=== PATIENT | male | born 1950 | race Caucasian/White ===

== ENCOUNTER → 2017-11-06 | Outpatient (CLI) | payer MEDICARE ==
[~2017-11-06] MED LIST: Cheratussin AC118 ML PO; Cipro500 MG PO; HYDACE5 PO; HYDACE5325 PO; HYDMOR2 PO; LEVFLO500 PO; Mobic7.5 MG PO; ONDA4 PO; OXYACE5T PO; POTCIT5 PO; PROM25 PO; Percocet 5-3251 EACH PO; RXHYDMOR2 PO; RXONDA4ODT MM; RXOXYACE PO
== END | disposition home or self-care (01) ==
LOC: LAB SHORT 09:14 → LAB 09:14
DX: N39.0 Urinary tract infection, site not specified (principal)
CPT/HCPCS: 87086

== ENCOUNTER 2017-12-21 01:49 | Emergency (ER) | payer MEDICARE ==
[~2017-12-21] VITALS: Ht 182.9 cm; Wt 83.9 kg
[2017-12-21 03:12] LABS: BASOPHILS ABSOLUTE AUTO 0.03 K/mm3 (0.00-0.23); BASOPHILS PERCENT AUTO 0 % (0-2); EOSINOPHILS ABSOLUTE AUTO 0.11 K/mm3 (0.00-0.68); EOSINOPHILS PERCENT AUTO 1 % (0-6); Hematocrit 45.8 % (37.0-53.0); Hemoglobin 15.1 g/dL (13.5-17.5); IMMATURE GRAN ABSOLUTE AUTO 0.07 K/mm3 (0.00-0.10); IMMATURE GRAN PERCENT AUTO 1 % (0-1); LYMPHOCYTES ABSOLUTE AUTO 0.82 K/mm3 (0.84-5.20); LYMPHOCYTES PERCENT AUTO 9 % (21-46); MONOCYTES ABSOLUTE AUTO 1.16 K/mm3 (0.16-1.47); MONOCYTES PERCENT AUTO 13 % (4-13); Mean Corpuscular HGB 26.8 pg (26.0-34.0); Mean Corpuscular Volume 81 fL (80-100); Mean Platelet Volume 10.3 fL (9.1-12.4); NEUTROPHILS ABSOLUTE AUTO 7.12 K/mm3 (1.96-9.15); NEUTROPHILS PERCENT AUTO 76 % (41-73); Platelet Count 147 K/mm3 (150-400); RDW Coefficient Variation 16.3 % (11.7-14.2); RDW Standard Deviation 48.1 fL (35.1-46.3); Red Blood Cell Count 5.64 M/mm3 (4.30-5.90); White Blood Cell Count 9.31 K/mm3 (4.00-11.30)
[2017-12-21 03:30] LABS: Albumin, Blood 4.3 g/dL (3.4-5.0); Albumin/Globulin Ratio 1.4 (0.8-1.8); Bilirubin, Total 0.8 mg/dL (0.1-1.0); Bun/Creatinine Ratio 10.9 (12.0-20.0); Calcium, Blood 9.3 mg/dL (8.5-10.1); Creatinine, Blood 1.47 mg/dL (0.60-1.20); Total Protein, Blood 7.3 g/dL (6.4-8.2)
[2017-12-21] MEDS ORDERED: Norco 5-325 Ta1 EACH PO (06:27)
[2017-12-21] MEDS ORDERED: Zofran Odt4 MG PO (06:27)
[2017-12-21] MEDS ORDERED: Flomax0.4 MG PO (06:27)
== END 2017-12-21 06:35 | disposition home or self-care (01) ==
LOC: ER 01:49
PROVIDERS: Emergency Medicine
DX: N13.2 Hydronephrosis with renal and ureteral calculous obstruction (principal); Z91.013 Allergy to seafood; Z87.891 Personal history of nicotine dependence; Z87.442 Personal history of urinary calculi
CPT/HCPCS: 36415; 74176; 80053; 81000; 83690; 85025; 96374; 96375; 99285; J1885; J3010; J7030

== ENCOUNTER → 2018-05-13 | Outpatient (CLI) | payer MEDICARE ==
[~2018-05-13] MED LIST changes: +Flomax0.4 MG PO; +Norco 5-325 Ta1 EACH PO; +Zofran Odt4 MG PO
[2018-05-13 10:46] LABS: BASOPHILS ABSOLUTE AUTO 0.01 K/mm3 (0.00-0.23); BASOPHILS PERCENT AUTO 0 % (0-2); EOSINOPHILS ABSOLUTE AUTO 0.18 K/mm3 (0.00-0.68); EOSINOPHILS PERCENT AUTO 3 % (0-6); IMMATURE GRAN ABSOLUTE AUTO 0.15 K/mm3 (0.00-0.10); IMMATURE GRAN PERCENT AUTO 2 % (0-1); LYMPHOCYTES ABSOLUTE AUTO 0.45 K/mm3 (0.84-5.20); LYMPHOCYTES PERCENT AUTO 7 % (21-46); MONOCYTES ABSOLUTE AUTO 1.06 K/mm3 (0.16-1.47); MONOCYTES PERCENT AUTO 16 % (4-13); Mean Corpuscular HGB 26.1 pg (26.0-34.0); Mean Corpuscular HGB Conc 30.1 g/dL (31.5-36.5); Mean Corpuscular Volume 87 fL (80-100); Mean Platelet Volume 12.1 fL (9.1-12.4); NEUTROPHILS PERCENT AUTO 73 % (41-73); NRBC ABSOLUTE 0.03 K/mm3 (0.00-0.02); NRBC Auto 0.4 /100 WBC (0.0-0.2); Platelet Count 83 K/mm3 (150-400); RDW Coefficient Variation 20.7 % (11.7-14.2); RDW Standard Deviation 64.5 fL (35.1-46.3); Red Blood Cell Count 1.99 M/mm3 (4.30-5.90); White Blood Cell Count 6.85 K/mm3 (4.00-11.30)
[2018-05-13 10:47] LABS: Alanine Aminotransfer (ALT/SGP 21 U/L (12-78); Albumin, Blood 2.8 g/dL (3.4-5.0); Albumin/Globulin Ratio 0.9 (0.8-1.8); Alk Phos 190 U/L (50-136); Anion Gap 14 mmol/L (6-16); Aspartate Aminotrans (AST/SGOT 7 U/L (12-37); Bilirubin, Total 1.3 mg/dL (0.1-1.0); Blood Urea Nitrogen 25 mg/dL (8-24); Bun/Creatinine Ratio 21.6 (12.0-20.0); CO2, Blood 20 mmol/L (21-32); Calcium, Blood 7.8 mg/dL (8.5-10.1); Chloride, Blood 108 mmol/L (98-108); Creatinine, Blood 1.16 mg/dL (0.60-1.20); Glomerular Filtration Rate >60 (60-); Glucose, Blood 103 mg/dL (70-99); Potassium, Blood 3.9 mmol/L (3.5-5.5); Sodium, Blood 142 mmol/L (136-145); Total Protein, Blood 5.8 g/dL (6.4-8.2)
[2018-05-13 10:58] LABS: Hematocrit 17.3 % (37.0-53.0)
[2018-05-13 10:59] LABS: Hemoglobin 5.2 g/dL (13.5-17.5)
== END | disposition home or self-care (01) ==
LOC: LAB SHORT 10:00 → LAB 10:00
PROVIDERS: Internal Medicine Hematology & Oncology
DX: C91.10 Chronic lymphocytic leukemia of B-cell type not having achieved remission (principal); D69.6 Thrombocytopenia, unspecified; D63.0 Anemia in neoplastic disease
CPT/HCPCS: 36415; 80053; 84550; 85025

== ENCOUNTER 2018-07-13 02:17 | Emergency (ER) | payer MEDICARE ==
[~2018-07-13] VITALS: Ht 182.9 cm; Wt 74.8 kg
[~2018-07-13 02:17] MED LIST changes: +ASCO500 PO; +VITAMIN D35000 UNI1 PO
[2018-07-13] MEDS ORDERED: CYAN500 (03:07)
[2018-07-13] MEDS ORDERED: CITRATE OF MAG296 ML PO (04:32)
== END 2018-07-13 04:42 | disposition home or self-care (01) ==
LOC: ER 02:17
DX: K59.00 Constipation, unspecified (principal); Z91.013 Allergy to seafood; Z79.899 Other long term (current) drug therapy; Z87.891 Personal history of nicotine dependence
CPT/HCPCS: 74018; 99283-25

== ENCOUNTER 2018-09-25 16:52 | Emergency (ER) | payer MEDICARE ==
[~2018-09-25] VITALS: Ht 177.8 cm; Wt 77.1 kg
[~2018-09-25 16:52] MED LIST changes: +CITRATE OF MAG296 ML PO; +CYAN500
[2018-09-25 18:59] LABS: BASOPHILS PERCENT AUTO 0 % (0-2); EOSINOPHILS ABSOLUTE AUTO 0.03 K/mm3 (0.00-0.68); EOSINOPHILS PERCENT AUTO 1 % (0-6); Hematocrit 26.7 % (37.0-53.0); Hemoglobin 8.5 g/dL (13.5-17.5); Mean Corpuscular HGB 31.4 pg (26.0-34.0); Mean Corpuscular HGB Conc 31.8 g/dL (31.5-36.5); Mean Corpuscular Volume 99 fL (80-100); Mean Platelet Volume 12.1 fL (9.1-12.4); RDW Coefficient Variation 17.5 % (11.7-14.2); RDW Standard Deviation 63.2 fL (35.1-46.3); Red Blood Cell Count 2.71 M/mm3 (4.30-5.90); White Blood Cell Count 4.49 K/mm3 (4.00-11.30)
[2018-09-25 19:41] LABS: IMMATURE GRAN PERCENT AUTO 2 % (0-1); LYMPHOCYTES PERCENT AUTO 5 % (21-46); MONOCYTES ABSOLUTE AUTO 0.66 K/mm3 (0.16-1.47); MONOCYTES PERCENT AUTO 15 % (4-13); NEUTROPHILS PERCENT AUTO 78 % (41-73)
[2018-09-25 19:43] LABS: Platelet Count 47 K/mm3 (150-400)
[2018-09-25 19:46] LABS: Alanine Aminotransfer (ALT/SGP 27 U/L (12-78); Albumin/Globulin Ratio 1.1 (0.8-1.8); Alk Phos 381 U/L (50-136); Anion Gap 6 mmol/L (6-16); Aspartate Aminotrans (AST/SGOT 12 U/L (12-37); Bilirubin, Total 1.6 mg/dL (0.1-1.0); Blood Urea Nitrogen 22 mg/dL (8-24); Bun/Creatinine Ratio 23.7 (12.0-20.0); CO2, Blood 28 mmol/L (21-32); Calcium, Blood 8.6 mg/dL (8.5-10.1); Chloride, Blood 103 mmol/L (98-108); Creatinine, Blood 0.93 mg/dL (0.60-1.20); Globulin, Blood 2.8 g/dL (2.2-4.0); Glomerular Filtration Rate >60 (60-); Glucose, Blood 112 mg/dL (70-99); Potassium, Blood 3.4 mmol/L (3.5-5.5); Sodium, Blood 137 mmol/L (136-145); Total Protein, Blood 5.8 g/dL (6.4-8.2)
[2018-09-25 19:51] LABS: Source, Urine Clean Catch
[2018-09-25 20:00] LABS: Blood, Urine Neg (Neg); Glucose Qualitative, Urine Neg (Neg); Ketones, Urine Neg (Neg); Leukocyte Esterase, Urine 1+ (Neg); Nitrite, Urine Neg (Neg); Protein, Urine 1+ (Neg); Specific Gravity, Urine 1.015 (1.003-1.022); Urobilinogen, Urine 2+ (Normal)
[2018-09-25 20:06] LABS: Influenza A Negative (NEGATIVE); Influenza B Negative (NEGATIVE)
[2018-09-25 20:15] LABS: Bilirubin, Urine 1+ (Neg)
[2018-09-25 20:16] LABS: Appearance, Urine Clear (Clear); Color, Urine Amber (P-Yellow)
[2018-09-25 20:18] LABS: Bacteria Rare /hpf; Red Blood Cells, Urine Not Seen /hpf (0-2); Squamous Epithelial Cells Not Seen /hpf (Few)
[2018-09-25] MEDS ORDERED: LEVO750 PO (22:13)
== END 2018-09-25 22:20 | disposition home or self-care (01) ==
LOC: ER 16:52
PROVIDERS: Emergency Medicine
DX: I95.9 Hypotension, unspecified (principal); J18.9 Pneumonia, unspecified organism; E86.0 Dehydration; D64.9 Anemia, unspecified; Z91.013 Allergy to seafood; Z79.899 Other long term (current) drug therapy
CPT/HCPCS: 36415; 71046; 71260; 74177; 80053; 81001; 83605; 85025; 87086; 87804; 93005; 93010; 96360-59; 96361-59; 99284-25; J7030; J7120; Q9967

== ENCOUNTER 2018-09-27 16:33 | Inpatient (IN) | payer MEDICARE ==
[~2018-09-27] VITALS: Ht 182.9 cm; Wt 80.4 kg
[~2018-09-27 16:33] MED LIST changes: +LEVO750 PO
[2018-09-27 17:04] LABS: Hematocrit 22.9 % (37.0-53.0); Hemoglobin 7.3 g/dL (13.5-17.5); Mean Corpuscular HGB 31.7 pg (26.0-34.0); Mean Corpuscular HGB Conc 31.9 g/dL (31.5-36.5); Mean Corpuscular Volume 100 fL (80-100); Mean Platelet Volume 12.5 fL (9.1-12.4); RDW Coefficient Variation 17.2 % (11.7-14.2); RDW Standard Deviation 63.9 fL (35.1-46.3); White Blood Cell Count 4.02 K/mm3 (4.00-11.30)
[2018-09-27 17:33] LABS: Albumin, Blood 2.6 g/dL (3.4-5.0); Bilirubin, Total 1.3 mg/dL (0.1-1.0); Bun/Creatinine Ratio 20.2 (12.0-20.0); Calcium, Blood 8.6 mg/dL (8.5-10.1); Creatinine, Blood 1.29 mg/dL (0.60-1.20); Globulin, Blood 2.7 g/dL (2.2-4.0); Potassium, Blood 3.7 mmol/L (3.5-5.5); Total Protein, Blood 5.3 g/dL (6.4-8.2)
[2018-09-27 17:37] LABS: Platelet Count 30 K/mm3 (150-400)
[2018-09-27 17:44] LABS: BAND PERCENT MAN 4 % (0-8); BASOPHILS PERCENT MAN 0 % (0-2); EOSINOPHILS PERCENT MAN 0 % (0-6); LYMPHOCYTES ABSOLUTE MAN 0.32 K/mm3 (0.84-5.20); LYMPHOCYTES PERCENT MAN 8 % (21-46); MONOCYTES PERCENT MAN 10 % (4-13); NEUTROPHILS ABSOLUTE MAN 3.29 K/mm3 (1.96-9.15); SEG NEUTROPHILS PERCENT MAN 78 % (41-73); TOTAL CELLS COUNTED 100
[2018-09-27 19:40] LABS: Appearance, Urine Clear (Clear); Blood, Urine Neg (Neg); Color, Urine Amber (P-Yellow); Glucose Qualitative, Urine Neg (Neg); Ketones, Urine 1+ (Neg); Leukocyte Esterase, Urine 1+ (Neg); Nitrite, Urine Pos (Neg); Protein, Urine 2+ (Neg); Source, Urine Clean Catch; Specific Gravity, Urine 1.015 (1.003-1.022); Urobilinogen, Urine 2+ (Normal)
[2018-09-27 19:44] LABS: Bilirubin, Urine 2+ (Neg)
[2018-09-27 19:47] LABS: Bacteria Mod /hpf; Hyaline Casts 50-100 /lpf (0-2); Red Blood Cells, Urine 0-2 /hpf (0-2); Squamous Epithelial Cells Not Seen /hpf (Few)
--- NOTE | 2018-09-27 23:20 | NUR ---
PT ARRIVAL. PT ARRIVED TO UNIT VIA [facility] AT 2305, PT IS A&Ox4 AND WAS ABLE TO SELF TRANSFER FROM [facility] TO BED. PT WAS ADMITTED DUE TO PNA AND WEAKNESS, PT WAS FOUND TO BE HYPOTENSIVE IN THE ER, 2L FLUID BOLUS WAS GIVEN IN THE ER. PT WAS ALSO FOUND TO HAVE A LOW H&H, PROVIDER ORDERED 1 UNIT OF PRBCS. PT'S BP ON ADMIT WAS 83/47, PT'S HR WAS 97, TEMP 99.0. PT DENIES ANY SOB, CHEST PAIN/PRESSURE, N/V OR DIZZINESS AT THIS TIME. NO EDEMA NOTED ON ASSESSMENT. L/S CLEAR T/O WITH SLIGHT COARSENESS IN THE BASES. PT IS 95% ON RA. BT PRESENT AND HYPOACTIVE, ABD IS SOFT AND NONTENDER TO PALP. PT STATES THAT HE HAS NOT EATEN WELL IN "WEEKS" DUE TO CHEMO TREATMENTS THAT ENDED APROX 2 WEEKS AGO, PT ALSO STATES THAT HE HAS NOT HAD A BM IN "A WEEK AND A HALF OR SO." PT COMPLAINS OF HIS "BACKSIDE" HURTING DUE TO "BEING IN BED ALL THE TIME RECENTLY." AREA WAS ASSESSED, NO PRESSURE ULCER OR SKIN ISSUES NOTED, MEPILEX WAS PLACED TO THE SACRAL AREA TO HELP PREVENT FUTURE SKIN ISSUES. CALL LIGHT IN REACH, BED IS LOCKED AND LOW WILL CONTINUE TO MONITOR.
[2018-09-27 23:41] LABS: IMMATURE RETIC FRACTION 2.2 % (2.3-16.0); RETIC HGB EQUIVALENT 33.8 pg (28.20-36.60); RETICULOCYTE COUNT PERCENT 0.96 % (0.50-2.50)
[2018-09-28 00:30] LABS: Percent Saturation 39.6 % (20.0-50.0)
--- NOTE | 2018-09-28 03:20 | NUR ---
PT UPDATE... 1 UNIT OF BLOOD WAS TRANSFUSED PER ORDERS, PT'S BP AFTER TRANSFUSION WAS:79/43. PROVIDER WAS CALLED AND ORDERS OBTAINED FOR 1L BOLUS OF NS AND A 2ND UNIT OF PRBCS.
[2018-09-28 03:57] LABS: BASOPHILS PERCENT AUTO 0 % (0-2); EOSINOPHILS ABSOLUTE AUTO 0.01 K/mm3 (0.00-0.68); EOSINOPHILS PERCENT AUTO 1 % (0-6); Hematocrit 21.3 % (37.0-53.0); Hemoglobin 6.9 g/dL (13.5-17.5); Mean Corpuscular HGB 31.7 pg (26.0-34.0); Mean Corpuscular HGB Conc 32.4 g/dL (31.5-36.5); Mean Corpuscular Volume 98 fL (80-100); Mean Platelet Volume 11.7 fL (9.1-12.4); RDW Coefficient Variation 17.6 % (11.7-14.2); RDW Standard Deviation 63.1 fL (35.1-46.3); Red Blood Cell Count 2.18 M/mm3 (4.30-5.90); White Blood Cell Count 2.16 K/mm3 (4.00-11.30)
[2018-09-28 03:59] LABS: IMMATURE GRAN ABSOLUTE AUTO 0.05 K/mm3 (0.00-0.10); IMMATURE GRAN PERCENT AUTO 2 % (0-1); LYMPHOCYTES ABSOLUTE AUTO 0.08 K/mm3 (0.84-5.20); LYMPHOCYTES PERCENT AUTO 4 % (21-46); MONOCYTES PERCENT AUTO 14 % (4-13); NEUTROPHILS ABSOLUTE AUTO 1.72 K/mm3 (1.96-9.15); NEUTROPHILS PERCENT AUTO 80 % (41-73)
[2018-09-28 04:00] LABS: Platelet Count 22 K/mm3 (150-400)
[2018-09-28 04:17] LABS: Alanine Aminotransfer (ALT/SGP 18 U/L (12-78); Albumin, Blood 2.2 g/dL (3.4-5.0); Alk Phos 292 U/L (50-136); Anion Gap 9 mmol/L (6-16); Aspartate Aminotrans (AST/SGOT 10 U/L (12-37); Bilirubin, Total 1.9 mg/dL (0.1-1.0); Blood Urea Nitrogen 25 mg/dL (8-24); Bun/Creatinine Ratio 21.7 (12.0-20.0); CO2, Blood 23 mmol/L (21-32); Calcium, Blood 7.8 mg/dL (8.5-10.1); Chloride, Blood 106 mmol/L (98-108); Creatinine, Blood 1.15 mg/dL (0.60-1.20); Globulin, Blood 2.1 g/dL (2.2-4.0); Glomerular Filtration Rate >60 (60-); Glucose, Blood 116 mg/dL (70-99); Potassium, Blood 3.6 mmol/L (3.5-5.5); Sodium, Blood 138 mmol/L (136-145); Total Protein, Blood 4.3 g/dL (6.4-8.2)
--- NOTE | 2018-09-28 05:35 | NUR ---
SHIFT SUMMARY. 2ND UNIT OF PRBCS IS TRANSFUSING, 1L FLUID BOLUS WAS INFUSED, PT'S BP AT THIS TIME IS: 81/45 (MAP: 57), HR 73. PT DENIES ANY SOB, CHEST PAIN/PRESSURE, N/V OR DIZZINESS. PT STATES HE FEELS BEETER AFTER THE FLUIDS AND UNIT OF BLOOD. PT'S COLOR HAS IMPROVED WELL. PT IS VOIDING DARK SHELIA URINE W/O DIFFICULTY USING THE URINAL AT THE BEDSIDE. CALL LIGHT IN REACH, BED IS LOCKED AND LOW WILL CONTINUE TO MONITOR UNTIL REPORT IS GIVEN TO ONCOMING RN.
--- NOTE | 2018-09-28 07:43 | NUR ---
NURSING PCU DAYSHIFT: Assumed care of pt at approx 0700. A/O, very pleasant, cooperative w/care. [place]OT[place]K on R side. Denies any pain/discomfort at rest. No c/o dizziness/light headedness though mild general weakness is present. Skin is dry/fragile w/scattered bruising on UE's, no breakdown noted. Tele in place, NSR, no c/o CP/pressure, SBP low 90's this a.m., no noted edema. L/S cta t/o, O2 sat mid 90's on RA, denies dyspnea, occ dry/DEVELOPMENT SPECIALIST cough. Abd SNT, BT+, minimal appetite, voiding w/o difficulty per pt. PIV x2, PRBC's infusing as per d/o, NS infusing at 150cc/hr, abx as ordered. No s/s of acute distress at this time. Dietary consult placed to discuss nutritional supplements w/pt. Pt denies any current needs or questions regarding plan of care. Currently sitting up in bed taking w/family on phone. Call light in reach, awaiting rounding from PMD, cont to monitor for any changes.
--- NOTE | 2018-09-28 16:16 | NUR ---
NURSING PCU DAYSHIFT SUMMARY: No significant changes noted t/o the shift. Seen by PMD, new d/o received. IVF discontinued, new d/o for meds received. Carafate and mycelex administered as ordered d/t pt's c/o worsening heartburn and reflux. Educated on positioning and recommended diet choices to reduce risk of reflux, verbalized understanding. VS have remained stable. Worked w/P.T., able to ambulate w/no c/o dizziness/light headedness, maintained SBP >100, steady gait. Spouse at bedside in afternoon, update provided, plan of care discussed, pt and s/o denied questions at that time. No s/s of acute distress, call light in reach, cont to monitor until rpt is given to NOC RN.
--- NOTE | 2018-09-28 20:13 | NUR ---
PM NOTE. ASSUMED CARE OF PT APROX 1900, PT IS A&Ox4 AND IND IN THE ROOM, PT IS ABLE TO MOVE FROM BED TO RECLINER CHAIR WITH EASE. PT'S WEAKNESS HAS IMPROVED GREATLY FROM PREVIOUS SHFIT. TELE INTACT, NSR IN THE 90'S-100'S PER [employer] OPERATIONS SUPERINTENDENT, PT'S BP 85/42, PT IS NOT SYMPTOMATIC OF HYPOTENSION AT THIS TIME. PT'S L/S CLEAR T/O AND SLIGHTLY COARSE IN THE BASES, PT IS 98% ON RA. BT PRESENT AND HYPOACTIVE, ABD IS SOFT AND NONTENDER TO PALP. CALL LIGHT IN REACH, BED IS LOCKED AND LOW WILL CONTINUE TO MONITOR.
[2018-09-28 20:46] LABS: Vancomycin, Trough 9.6 ug/mL (5.0-10.0)
[2018-09-29 03:49] LABS: BASOPHILS PERCENT AUTO 0 % (0-2); EOSINOPHILS ABSOLUTE AUTO 0.03 K/mm3 (0.00-0.68); EOSINOPHILS PERCENT AUTO 1 % (0-6); Hematocrit 23.3 % (37.0-53.0); Hemoglobin 7.6 g/dL (13.5-17.5); Mean Corpuscular HGB 31.4 pg (26.0-34.0); Mean Corpuscular HGB Conc 32.6 g/dL (31.5-36.5); Mean Corpuscular Volume 96 fL (80-100); Mean Platelet Volume 11.7 fL (9.1-12.4); RDW Coefficient Variation 17.6 % (11.7-14.2); RDW Standard Deviation 62.4 fL (35.1-46.3); Red Blood Cell Count 2.42 M/mm3 (4.30-5.90); White Blood Cell Count 2.31 K/mm3 (4.00-11.30)
[2018-09-29 03:51] LABS: IMMATURE GRAN ABSOLUTE AUTO 0.04 K/mm3 (0.00-0.10); IMMATURE GRAN PERCENT AUTO 2 % (0-1); LYMPHOCYTES ABSOLUTE AUTO 0.05 K/mm3 (0.84-5.20); LYMPHOCYTES PERCENT AUTO 2 % (21-46); MONOCYTES PERCENT AUTO 13 % (4-13); NEUTROPHILS ABSOLUTE AUTO 1.89 K/mm3 (1.96-9.15); NEUTROPHILS PERCENT AUTO 82 % (41-73); Platelet Count 20 K/mm3 (150-400)
[2018-09-29 04:05] LABS: Alanine Aminotransfer (ALT/SGP 14 U/L (12-78); Albumin, Blood 2.1 g/dL (3.4-5.0); Alk Phos 223 U/L (50-136); Anion Gap 8 mmol/L (6-16); Aspartate Aminotrans (AST/SGOT 6 U/L (12-37); Bilirubin, Total 2.1 mg/dL (0.1-1.0); Blood Urea Nitrogen 23 mg/dL (8-24); Bun/Creatinine Ratio 23.9 (12.0-20.0); CO2, Blood 22 mmol/L (21-32); Calcium, Blood 7.4 mg/dL (8.5-10.1); Chloride, Blood 111 mmol/L (98-108); Creatinine, Blood 0.96 mg/dL (0.60-1.20); Globulin, Blood 2.1 g/dL (2.2-4.0); Glomerular Filtration Rate >60 (60-); Glucose, Blood 108 mg/dL (70-99); Magnesium, Blood 1.7 mg/dL (1.6-2.4); Potassium, Blood 3.4 mmol/L (3.5-5.5); Sodium, Blood 141 mmol/L (136-145); Total Protein, Blood 4.2 g/dL (6.4-8.2)
[2018-09-29 04:18] LABS: BAND PERCENT MAN 10 % (0-8); BASOPHILS PERCENT MAN 0 % (0-2); EOSINOPHILS ABSOLUTE MAN 0.06 K/mm3 (0.00-0.68); EOSINOPHILS PERCENT MAN 3 % (0-6); LYMPHOCYTES ABSOLUTE MAN 0.09 K/mm3 (0.84-5.20); LYMPHOCYTES PERCENT MAN 4 % (21-46); MONOCYTES ABSOLUTE MAN 0.13 K/mm3 (0.16-1.47); MONOCYTES PERCENT MAN 6 % (4-13); MYELOCYTE ABSOLUTE MAN 0.02 K/mm3 (0.00-0.00); MYELOCYTE PERCENT MAN 1 % (0-0); NEUTROPHILS ABSOLUTE MAN 1.98 K/mm3 (1.96-9.15); SEG NEUTROPHILS PERCENT MAN 76 % (41-73); TOTAL CELLS COUNTED 100
--- NOTE | 2018-09-29 05:32 | NUR ---
SHIFT SUMMARY. NO ACUTE CHANGES NOTED THIS SHIFT. PT'S BP HAS BEEN 80'S/40'S MOST WITH MAP LESS THAN 60 MOST OF THIS SHIFT. PT HAS NOT BEEN SYMPTOMATIC AND STATES "I ACTUALLY FEEL BETTER THAN I HAVE IN A WHILE." PROVIDER WAS MADE AWARE OF PT'S BP AND MAP, NO NEW ORDERS WERE GIVEN. PT DENIES ANY CHEST PAIN/PRESSURE, N/V OR SOB, PT'S WEAKNESS HAS IMPROVED AND HE HAS BEEN IND IN THE ROOM. PT DENIES ANY LIGHTHEADED OR DIZZINESS WELL. PT'S OTHER VS HAVE BEEN STABLE T/O SHIFT. CALL LIGHT IN REACH, BED IS LOCKED AND LOW WILL CONTINUE TO MONITOR UNTIL REPORT IS GIVEN TO ONCOMING RN.
--- NOTE | 2018-09-29 07:30 | NUR ---
RECEIVED REPORT FROM BRANDI ARREOLA, AND ASSUMED CARE OF PT.
--- NOTE | 2018-09-29 09:05 | NUR ---
CALLED DR. GARCIA RE: K = 3.4, HBG = 7.6, AND PLT = 20. SHE STATED SHE WILL ENTER ORDERS.
--- NOTE | 2018-09-29 16:59 | NUR ---
NURSING SUMMARY SLEEPY TODAY, WAKES EASILY TO VOICE, ORIENTED X4, [place], MILDLY ANXIOUS AT TIMES. NSR HR 70'S. BP STABLE. AFEBRILE. LUNGS CLEAR, ROOM AIR, SATS GREATER THAN 95%. VOIDS PER URINAL, SHELIA URINE, ADEQUATE OUTPUT. INDEPENDENT IN THE ROOM, HAD A SHOWER TODAY. CALLS FOR ASSISTANCE APPROPRIATELY. TOLERATING A REGULAR DIET. SKIN INTACT. DENIES PAIN. BOWEL SOUNDS PRESENT X 4 QUADRANTS, DENIES N/V/D. CARAFTE FOR REFLUX. LEFT HAND 22G AND RFA 20G, INFUSING D5 1/2 NS WITH 40 MEQS POTASSIUM AT 150 CC/HR. K3.4. H&H 7.6/23.3, PLATELETS 20.
--- NOTE | 2018-09-29 18:47 | NUR ---
LEFT HAND/FOREARM IV INFILTRATED, SWOLLEN, LEAKING, C/O MILD PAIN. REMOVED IV AND APPLIED WARM BLANKET. PT DENIES NEED FOR PAIN MEDICATION. D5 1/2 NS WITH 40 MEQS POTASSIUM INFUSING AT 150 ML/HR TO THE RIGHT ARM IV SITE.
[2018-09-29 20:32] LABS: Vancomycin, Trough 13.8 ug/mL (5.0-10.0)
--- NOTE | 2018-09-29 22:41 | NUR ---
ASSUME CARE - PCU NOC PATIENT ALERT AND ORIENTED TO SELF, LOCATION AND SITUATION - PATIENT VERBALIZES CONFUSION BUT REMAINS ORIENTED, JUST UNSURE AND UNCERTAIN OF WHAT HE NEEDS AT THIS TIME AND FEELS LIKE SOMETHING IS MISSING FROM HIS TREATMENT - CALMED AND ENCOURAGED PATIENT. VSS (HYPOTENSION NOTED, NONSYMPTOMATIC). RESP E/U AT REST ON ROOM AIR. HR NSR IN THE 80'S. NO ACUTE DISTRESS NOTED. WILL CONTINUE TO MONITOR. CALL LIGHT W/I REACH, PATIENT DENIES ANY NEEDS.
[2018-09-30 04:47] LABS: Alanine Aminotransfer (ALT/SGP 13 U/L (12-78); Albumin, Blood 1.9 g/dL (3.4-5.0); Alk Phos 184 U/L (50-136); Anion Gap 6 mmol/L (6-16); Aspartate Aminotrans (AST/SGOT 3 U/L (12-37); Bilirubin, Total 1.8 mg/dL (0.1-1.0); Blood Urea Nitrogen 21 mg/dL (8-24); Bun/Creatinine Ratio 22.5 (12.0-20.0); CO2, Blood 21 mmol/L (21-32); Calcium, Blood 7.4 mg/dL (8.5-10.1); Chloride, Blood 112 mmol/L (98-108); Creatinine, Blood 0.93 mg/dL (0.60-1.20); Glomerular Filtration Rate >60 (60-); Glucose, Blood 120 mg/dL (70-99); Potassium, Blood 3.8 mmol/L (3.5-5.5); Sodium, Blood 139 mmol/L (136-145); Total Protein, Blood 3.9 g/dL (6.4-8.2)
[2018-09-30 05:24] LABS: BASOPHILS PERCENT AUTO 0 % (0-2); EOSINOPHILS ABSOLUTE AUTO 0.01 K/mm3 (0.00-0.68); EOSINOPHILS PERCENT AUTO 1 % (0-6); Hematocrit 20.7 % (37.0-53.0); Hemoglobin 6.8 g/dL (13.5-17.5); IMMATURE GRAN ABSOLUTE AUTO 0.12 K/mm3 (0.00-0.10); IMMATURE GRAN PERCENT AUTO 8 % (0-1); LYMPHOCYTES ABSOLUTE AUTO 0.07 K/mm3 (0.84-5.20); LYMPHOCYTES PERCENT AUTO 5 % (21-46); MONOCYTES ABSOLUTE AUTO 0.32 K/mm3 (0.16-1.47); MONOCYTES PERCENT AUTO 21 % (4-13); Mean Corpuscular HGB 31.8 pg (26.0-34.0); Mean Corpuscular HGB Conc 32.9 g/dL (31.5-36.5); Mean Corpuscular Volume 97 fL (80-100); Mean Platelet Volume 12.1 fL (9.1-12.4); NEUTROPHILS ABSOLUTE AUTO 1.04 K/mm3 (1.96-9.15); NEUTROPHILS PERCENT AUTO 67 % (41-73); RDW Coefficient Variation 17.2 % (11.7-14.2); RDW Standard Deviation 61.5 fL (35.1-46.3); Red Blood Cell Count 2.14 M/mm3 (4.30-5.90); White Blood Cell Count 1.56 K/mm3 (4.00-11.30)
[2018-09-30 05:25] LABS: Platelet Count 17 K/mm3 (150-400)
--- NOTE | 2018-09-30 05:44 | NUR ---
PCU NOC SHIFT SUMMARY PATIENT ALERT AND ORIENTED T/O SHIFT. NO ACUTE CHANGES NOTED. HR REMAIN IN NSR IN THE 80'S T/O SHIFT. VSS. PATIENT ON ROOM AIR. PATIENT HAS CRITICALLY LOW PLTS OF 17. WILL CONTINUE TO MONITOR AND GIVE REPORT TO DAYSHIFT RN.
[2018-09-30 05:49] LABS: BAND PERCENT MAN 7 % (0-8); BASOPHILS PERCENT MAN 0 % (0-2); EOSINOPHILS ABSOLUTE MAN 0.03 K/mm3 (0.00-0.68); EOSINOPHILS PERCENT MAN 2 % (0-6); LYMPHOCYTES ABSOLUTE MAN 0.03 K/mm3 (0.84-5.20); LYMPHOCYTES PERCENT MAN 2 % (21-46); MONOCYTES ABSOLUTE MAN 0.28 K/mm3 (0.16-1.47); MONOCYTES PERCENT MAN 18 % (4-13); NEUTROPHILS ABSOLUTE MAN 1.21 K/mm3 (1.96-9.15); SEG NEUTROPHILS PERCENT MAN 71 % (41-73); TOTAL CELLS COUNTED 100
--- NOTE | 2018-09-30 08:10 | NUR ---
ASSUMED CARE: REPORT RECEIVED FROM NATHAN Garcia RN. ASSUMED CARE OF THIS PT AT APPROX 0700. ON ASSESSMENT, THE PT IS RESTING QUIETLY. HE IS GRUFF AT FIRST, WHEN QUESTIONED REGARDING THIS, HE BECOMES EMOTIONAL & STS HE "JUST WANTS TO BE DONE SO THAT HE CAN GO HOME." WHEN PROMTED FURTHER, THE PT STS THAT HE WOULD LIKE TO SEE DR. MCDONALD, HIS ONCOLOGIST, TODAY SO THAT HE MAY BETTER UNDERSTAND HIS PROGNOSIS & FURTHER TX PLAN. WILL DISCUSS THIS W/ DR. GARCIA ON ROUNDING. THE PT IS NOW MORE CALM & REMAINS TEARFUL. WILL NOTIFY PALLIATIVE CARE FOR SUPPORTIVE PURPOSES ALSO. WILL CONTINUE TO MONITOR & UPDATE NEEDED.
--- NOTE | 2018-09-30 08:40 | NUR ---
DR. GARCIA: PROVIDER IN UNIT, DISCUSSED W/ HER PT's CONCERNS NOTED PRIOR. SHE STS OKAY TO PLACE CONSULT FOR DR. MCDONALD TO SEE PT. GI HAS ALSO BEEN CONSULTED THIS AM FOR LOW H&H. PLANS TO TRANFUSE 1 UNIT PRBCs & 1 UNIT PLTs ONCE IV ABX COMPLETE. WILL CONTINUE TO MONITOR & UDPATE NEEDED.
--- NOTE | 2018-09-30 12:15 | NUR ---
DR. MCDONALD: PROVIDER AT BEDSIDE TO SEE PT. THEY HAVE DISCUSSED POC. HE WOULD LIKE TO CONSULT PULMONOLOGY TO HAVE A BRONCH PERFORMED TO BETTER DETERMINE IF THE PT's CURRENT CONDITION IS R/T PNA OR A WORSENING OF HIS UNDERLYING LEUKEMIA. WILL CONTINUE TO MONITOR & UPDATE NEEDED.
--- NOTE | 2018-09-30 18:24 | NUR ---
SHIFT SUMMARY: SINCE ASSUMING CARE THIS AM, THE PT's CONDITION & EMOTIONAL STATE HAS IMPROVED. HE REMAINS A&O, IS NOW PLEASANT & COOPERATIVE W/ CARE. HE WAS EVEN ABLE TO REST FOR A SHORT WHILE THIS AFTERNOON AFTER RECEIVING ATIVAN. HE HAS VERBALIZED THE DESIRE FOR A "GOOD NIGHT's SLEEP" TONIGHT. BLOOD & PLT TRANSFUSIONS COMPLETED THIS AFTERNOON, PT TOLERATED WELL W/ NO ADVERSE REACTIONS NOTED & BP IMPROVED. LS REMAIN CLEAR T/O & PT ON RA W/ O2 SATS > 92%. MONITOR SHOWS NSR, HR 80s. PT's APPETITE HAS IMPROVED SLIGHTLY THIS AFTERNOON & HE IS FEELING MORE MOTIVATED TO GET PROPER NUTRITION. SINCE CONDOM CATH PLACEMENT, PT IS FEELING MORE AT EASE WHEN VOIDING. BEFORE HE WAS CONCERED W/ SPILLING THE URINAL & BECOMING "TANGLED" IN HIS IV LINE/TELE/ETC. URINE REMAINS DARK & SHELIA IN COLOR. PT IS TO BE NPO AFTER MN FOR POSS BRONCH IN AM, PER DR. SALGUERO. SIGN HAS BEEN PLACED ON DOORWAY REMINDER TO STAFF. PT WOULD LIKELY BENEFIT FROM POWERGLIDE PLACEMENT TONIGHT HIS CURRENT PIV IS PAINFUL & HE DOES NOT HAVE MUCH FOR PERIPHERAL ACCESS R/T CHEMO. WILL CONTINUE TO MONITOR & REPORT OFF TO ONCOMING RN.
--- NOTE | 2018-09-30 19:40 | NUR ---
ASSUMED CARE PT SLEEPING IN ROOM COMFORTBLY. PER DAY SHIFT PT HAD BEEN STRUGGLING WITH FRUSATRATION OVER CARE AND PLAN AND ANXIETY ABOUT PROGNOSIS. PT WAS SEEN TODAY BY PULMONOLOGY, AND CANCER SPECIALIST. NEW CARE PLAN SET IN PLACE AND PT PROVIDED WITH MEDICATIONS FOR ANXIETY. PT AFFECT MUCH MORE PLEASENT THIS EVENING. DENIES PAIN, DENIES SOB. RESP EVEN UNLABORED ON RA W/ SATS >92%. CONDOM CATH IN PLACE AND DRAINING DARK YELLOW URINE. PIV SITE IS RED AND TENDER W/ FLUSH. WILL ATTEMPT TO HAVE POWERGLIDE IV PLACED FOR PT THIS EVENING. CALL LIGHT IS IN REACH.
[2018-09-30 20:38] LABS: Vancomycin, Trough 16.7 ug/mL (5.0-10.0)
[2018-10-01 04:12] LABS: Hemoglobin 6.8 g/dL (13.5-17.5); Mean Corpuscular HGB 31.3 pg (26.0-34.0); Mean Corpuscular HGB Conc 32.4 g/dL (31.5-36.5); Mean Corpuscular Volume 97 fL (80-100); Mean Platelet Volume 12.1 fL (9.1-12.4); RDW Coefficient Variation 16.7 % (11.7-14.2); RDW Standard Deviation 58.8 fL (35.1-46.3); Red Blood Cell Count 2.17 M/mm3 (4.30-5.90); White Blood Cell Count 1.27 K/mm3 (4.00-11.30)
[2018-10-01 04:32] LABS: Platelet Count 16 K/mm3 (150-400)
[2018-10-01 04:33] LABS: Alanine Aminotransfer (ALT/SGP 11 U/L (12-78); Albumin, Blood 1.9 g/dL (3.4-5.0); Alk Phos 180 U/L (50-136); Anion Gap 7 mmol/L (6-16); Aspartate Aminotrans (AST/SGOT 4 U/L (12-37); Blood Urea Nitrogen 22 mg/dL (8-24); Bun/Creatinine Ratio 23.6 (12.0-20.0); CO2, Blood 21 mmol/L (21-32); Calcium, Blood 7.5 mg/dL (8.5-10.1); Chloride, Blood 113 mmol/L (98-108); Creatinine, Blood 0.93 mg/dL (0.60-1.20); Glomerular Filtration Rate >60 (60-); Glucose, Blood 96 mg/dL (70-99); Magnesium, Blood 1.8 mg/dL (1.6-2.4); Potassium, Blood 3.6 mmol/L (3.5-5.5); Sodium, Blood 141 mmol/L (136-145); Total Protein, Blood 3.9 g/dL (6.4-8.2)
[2018-10-01 05:36] LABS: BAND PERCENT MAN 4 % (0-8); BASOPHILS PERCENT MAN 0 % (0-2); EOSINOPHILS PERCENT MAN 0 % (0-6); LYMPHOCYTES % ATYPICAL MANUAL 2 % (0-0); LYMPHOCYTES PERCENT MAN 14 % (21-46); METAMYELOCYTE ABSOLUTE MAN 0.01 K/mm3 (0.00-0.00); METAMYELOCYTE PERCENT MAN 1 % (0-0); MONOCYTES ABSOLUTE MAN 0.03 K/mm3 (0.16-1.47); MONOCYTES PERCENT MAN 3 % (4-13); NEUTROPHILS ABSOLUTE MAN 1.01 K/mm3 (1.96-9.15); SEG NEUTROPHILS PERCENT MAN 76 % (41-73); TOTAL CELLS COUNTED 100
--- NOTE | 2018-10-01 06:38 | NUR ---
SHIFT SUMMARY PT RESTING IN ROOM COMFORTBALY WIHT BLOOD PRODCUST INFUSING IN POWERGLIDE IV. PT HAD NO MAJOR CHANGES IN STATUS OVERNIGHT. MORNING LABS CAME BACK WITH CONTINUED LOW PLT COUNT AND LOW HGB. PROVIDER CALLED AND ORDERED I UNIT PRBC'S AND I UNIT PLTS TO BE INFUSED THIS AM. PT AFFECT BRIGHT, REPOPRTS SLEPT WELL. PT CONDOM CATH CAME LOOSE THIS AM. PT ADVISED WILL REPLACE ONCE AFTER CHANGE OF SHIFT. RESP EVEN UNLABORED ON RA W/ SATS >92%. DENIES CP, DENIES SOB. PT SITTING UP IN CHAIR WHILE LINEN IS BEING CHANGED ON BED. BLOOD PRODUCTS TRASNFUSING. PT TOLERATING WELL. CALL LIGHT IN REACH.
[2018-10-01 15:21] LABS: Hematocrit 22.1 % (37.0-53.0); Hemoglobin 7.3 g/dL (13.5-17.5); Mean Platelet Volume 11.1 fL (9.1-12.4)
[2018-10-01 16:10] LABS: Platelet Count 21 K/mm3 (150-400)
--- NOTE | 2018-10-01 17:49 | NUR ---
SHIFT SUMMARY PT ALERT AND ORIENTED. PT DROWSY THROUGHOUT SHIFT. VS STABLE AT THIS TIME. PT RECEIVED 1U PRBC AND 1U PLATELETS THIS SHIFT. O2 SATS HAVE REMAINED ABOVE 92% ON RA. PT REMAINS AFEBRILE. PT ABLE TO TOLERATE MEALS AND REPORTS INCREASE IN APPETITE. NO MAJOR CHANGES THIS SHIFT. WILL CONTINUE TO MONITOR AND REPORT TO ONCOMING RN. CALL LIGHT IN REACH.
[2018-10-02 04:40] LABS: Hematocrit 24.8 % (37.0-53.0); Hemoglobin 8.4 g/dL (13.5-17.5); Mean Corpuscular HGB 31.8 pg (26.0-34.0); Mean Corpuscular HGB Conc 33.9 g/dL (31.5-36.5); Mean Platelet Volume 12.8 fL (9.1-12.4); RDW Coefficient Variation 15.9 % (11.7-14.2); RDW Standard Deviation 54.7 fL (35.1-46.3); Red Blood Cell Count 2.64 M/mm3 (4.30-5.90); White Blood Cell Count 1.31 K/mm3 (4.00-11.30)
[2018-10-02 04:49] LABS: Mean Corpuscular Volume 94 fL (80-100); Platelet Count 20 K/mm3 (150-400)
[2018-10-02 04:59] LABS: Alanine Aminotransfer (ALT/SGP 24 U/L (12-78); Alk Phos 213 U/L (50-136); Anion Gap 7 mmol/L (6-16); Aspartate Aminotrans (AST/SGOT 11 U/L (12-37); Bilirubin, Total 2.5 mg/dL (0.1-1.0); Blood Urea Nitrogen 24 mg/dL (8-24); Bun/Creatinine Ratio 27.1 (12.0-20.0); CO2, Blood 21 mmol/L (21-32); Calcium, Blood 7.6 mg/dL (8.5-10.1); Chloride, Blood 112 mmol/L (98-108); Creatinine, Blood 0.89 mg/dL (0.60-1.20); Glomerular Filtration Rate >60 (60-); Glucose, Blood 97 mg/dL (70-99); Potassium, Blood 3.3 mmol/L (3.5-5.5); Sodium, Blood 140 mmol/L (136-145)
[2018-10-02 05:21] LABS: BAND PERCENT MAN 10 % (0-8); BASOPHILS PERCENT MAN 0 % (0-2); EOSINOPHILS ABSOLUTE MAN 0.05 K/mm3 (0.00-0.68); EOSINOPHILS PERCENT MAN 4 % (0-6); LYMPHOCYTES % ATYPICAL MANUAL 2 % (0-0); LYMPHOCYTES ABSOLUTE MAN 0.06 K/mm3 (0.84-5.20); LYMPHOCYTES PERCENT MAN 3 % (21-46); MONOCYTES ABSOLUTE MAN 0.03 K/mm3 (0.16-1.47); MONOCYTES PERCENT MAN 3 % (4-13); NEUTROPHILS ABSOLUTE MAN 1.15 K/mm3 (1.96-9.15); SEG NEUTROPHILS PERCENT MAN 78 % (41-73); TOTAL CELLS COUNTED 100
--- NOTE | 2018-10-02 06:14 | NUR ---
SHIFT SUMMARY PATIENT PLEASENT AND COOPERATIVE THROUGHOUT THE NIGHT. PATIENT APPEARED TO NAP ON AND OFF THROUGHOUT MOST OF THE NIGHT, HOWEVER PATIENT REPORTS HE DOES NOT FEEL LIKE HE SLEPT WELL. ONE UNIT OF PRBC GIVEN PER ORDERS. NEUTROPENIC PERCAUTIONS IN PLACE. ABX GIVEN PER ORDERS. PATIENT ABLE TO MOVE SELF ABOUT IN BED. VITAL SIGNS CHARTED. WILL CONTINUE TO MONITOR PATIENT AND REPORT TO ONCOMING RN.
--- NOTE | 2018-10-02 17:54 | NUR ---
CHEMOTHERAPY STARTED (CYCLOPHOSPHAMIDE) PATENT POWER GLIDE WITH EXCELLENT BLOOD RETURN. VSS. PT IN [employer]/EDUCATION PROVIDED.
--- NOTE | 2018-10-02 18:15 | NUR ---
SHIFT SUMMARY PT ALERT AND ORIENTED. PT IN [employer] TODAY WITH FAMILY IN TO VISIT. VS STABLE. PT WAS FEBRILE THIS AFTERNOON. DR. MCDONALD AWARE. NEW ORDERS FOR CHEMOTHERAPY. PT STATES HIS APPETITE HAS IMPROVED. PT RECEIVED 1U PLATELETS THIS SHIFT. CONDOM CATH STILL IN PLACE FOR COMFORT. WILL CONTINUE TO MONITOR AND REPORT TO ONCOMING RN. CALL LIGHT IN REACH.
[2018-10-03 04:35] LABS: Hematocrit 23.6 % (37.0-53.0); Hemoglobin 7.6 g/dL (13.5-17.5); Mean Corpuscular HGB 31.1 pg (26.0-34.0); Mean Corpuscular HGB Conc 32.2 g/dL (31.5-36.5); RDW Coefficient Variation 15.9 % (11.7-14.2); RDW Standard Deviation 56.8 fL (35.1-46.3); Red Blood Cell Count 2.44 M/mm3 (4.30-5.90); White Blood Cell Count 1.46 K/mm3 (4.00-11.30)
[2018-10-03 04:45] LABS: Mean Corpuscular Volume 97 fL (80-100)
[2018-10-03 04:46] LABS: Platelet Count 17 K/mm3 (150-400)
[2018-10-03 04:52] LABS: Alanine Aminotransfer (ALT/SGP 22 U/L (12-78); Albumin, Blood 1.9 g/dL (3.4-5.0); Alk Phos 193 U/L (50-136); Anion Gap 4 mmol/L (6-16); Aspartate Aminotrans (AST/SGOT 5 U/L (12-37); Bilirubin, Total 1.9 mg/dL (0.1-1.0); Blood Urea Nitrogen 29 mg/dL (8-24); Bun/Creatinine Ratio 32.4 (12.0-20.0); CO2, Blood 22 mmol/L (21-32); Calcium, Blood 7.5 mg/dL (8.5-10.1); Chloride, Blood 117 mmol/L (98-108); Creatinine, Blood 0.89 mg/dL (0.60-1.20); Globulin, Blood 1.9 g/dL (2.2-4.0); Glomerular Filtration Rate >60 (60-); Glucose, Blood 144 mg/dL (70-99); Potassium, Blood 4.2 mmol/L (3.5-5.5); Sodium, Blood 143 mmol/L (136-145); Total Protein, Blood 3.8 g/dL (6.4-8.2)
[2018-10-03 05:13] LABS: BAND PERCENT MAN 12 % (0-8); BASOPHILS PERCENT MAN 0 % (0-2); EOSINOPHILS PERCENT MAN 0 % (0-6); LYMPHOCYTES ABSOLUTE MAN 0.05 K/mm3 (0.84-5.20); LYMPHOCYTES PERCENT MAN 4 % (21-46); METAMYELOCYTE ABSOLUTE MAN 0.04 K/mm3 (0.00-0.00); METAMYELOCYTE PERCENT MAN 3 % (0-0); MONOCYTES ABSOLUTE MAN 0.01 K/mm3 (0.16-1.47); MONOCYTES PERCENT MAN 1 % (4-13); MYELOCYTE ABSOLUTE MAN 0.01 K/mm3 (0.00-0.00); MYELOCYTE PERCENT MAN 1 % (0-0); NEUTROPHILS ABSOLUTE MAN 1.32 K/mm3 (1.96-9.15); SEG NEUTROPHILS PERCENT MAN 79 % (41-73); TOTAL CELLS COUNTED 100
--- NOTE | 2018-10-03 07:27 | NUR ---
SHIFT SUMMARY PATIENT PLEASENT AND COOPERATIVE THROUGHOUT THE NIGHT. PATIENT DID COMPLAIN OF WAKING UP VERY SWEATY SEVERAL TIMES. GOWN AND SHEETS CHANGED AND TEMP CHECKED EACH TIME. PATIENT REMAINED IN NEUTROPENIC AND CHEMO PERCAUTIONS. DR JENSEN NOTIFIED OF PATIENT'S HGB AND PLATELET LEVELS THIS MORNING. NO NEW ORDERS GIVEN. IV FLUIDS AND ABX GIVEN PER ORDERS. VITAL SIGNS CHARTED. REPORT GIVEN TO ONCOMING RN.
[2018-10-03 08:39] LABS: Vancomycin, Trough 18.9 ug/mL (5.0-10.0)
--- NOTE | 2018-10-03 18:30 | NUR ---
SHIFT SUMMARY PT ALERT AND ORIENTED. VITAL SIGNS STABLE AT THIS TIME. BP HAS IMPROVED POST TRANSFUSION. PT TO RECIEVE SECOND UNIT OF PRBC AWAITING BLOOD TO BE SENT FROM BLOOD BANK. PT DENIES ANY PAIN. CONDOM CATH IN PLACE FOR COMFORT. PT DENIES ANY UNMET NEEDS. AT THE BEDSIDE. REPORT GIVEN TO SIMON PAZ.
--- NOTE | 2018-10-04 06:45 | NUR ---
SHIFT SUMMARY PATIENT ALERT AND ORIENTED X 3 THROUGHOUT SHIFT. HE WAS PLEASANT AND COOPERATIVE WITH VITALS AND ASSESSMENTS. PT DENIED ANY UNMET NEEDS AND NO ACUTE CHANGES WERE OBSERVED TO LOC OR MENTATION. HE HAS BEEN SLEEPING T/O MAJORITY OF THE NIGHT AND WAS ABLE TO APPROPRIATELY USE CALL LIGHT TO MAKE NEEDS KNWON. PT DENIED ANY COMPLAINTS OF PAIN OR DISCOMFORT. PT HAS NEUTROPENIC PRECAUTIONS AND CHEMOTHERAPY PRECAUTIONS. PT HAS 2X SIDE RAILS IN PLACE, BED IN LOWEST POSITION, NON SLIP SOCKS ON FOR SAFETY AND CALL LIGHT WITHIN REACH. PT WILL CONTINUE TO BE MONITORED UNTIL HANDOFF TO DAYSHIFT RN.
[2018-10-04 08:37] LABS: Hematocrit 30.2 % (37.0-53.0); Hemoglobin 10.1 g/dL (13.5-17.5); Mean Corpuscular HGB 31.2 pg (26.0-34.0); Mean Corpuscular HGB Conc 33.4 g/dL (31.5-36.5); Red Blood Cell Count 3.24 M/mm3 (4.30-5.90); White Blood Cell Count 2.72 K/mm3 (4.00-11.30)
[2018-10-04 08:41] LABS: Mean Corpuscular Volume 93 fL (80-100); Mean Platelet Volume 13.5 fL (9.1-12.4)
[2018-10-04 08:45] LABS: Platelet Count 21 K/mm3 (150-400)
[2018-10-04 08:58] LABS: Alanine Aminotransfer (ALT/SGP 18 U/L (12-78); Albumin/Globulin Ratio 0.9 (0.8-1.8); Alk Phos 173 U/L (50-136); Anion Gap 6 mmol/L (6-16); Aspartate Aminotrans (AST/SGOT 8 U/L (12-37); Blood Urea Nitrogen 28 mg/dL (8-24); Bun/Creatinine Ratio 31.7 (12.0-20.0); CO2, Blood 20 mmol/L (21-32); Calcium, Blood 7.9 mg/dL (8.5-10.1); Chloride, Blood 116 mmol/L (98-108); Creatinine, Blood 0.88 mg/dL (0.60-1.20); Globulin, Blood 2.3 g/dL (2.2-4.0); Glomerular Filtration Rate >60 (60-); Glucose, Blood 113 mg/dL (70-99); Potassium, Blood 3.9 mmol/L (3.5-5.5); Sodium, Blood 142 mmol/L (136-145); Total Protein, Blood 4.3 g/dL (6.4-8.2)
[2018-10-04 09:40] LABS: BAND PERCENT MAN 10 % (0-8); BASOPHILS PERCENT MAN 0 % (0-2); EOSINOPHILS ABSOLUTE MAN 0.02 K/mm3 (0.00-0.68); EOSINOPHILS PERCENT MAN 1 % (0-6); LYMPHOCYTES % ATYPICAL MANUAL 2 % (0-0); LYMPHOCYTES ABSOLUTE MAN 0.05 K/mm3 (0.84-5.20); METAMYELOCYTE ABSOLUTE MAN 0.05 K/mm3 (0.00-0.00); METAMYELOCYTE PERCENT MAN 2 % (0-0); MONOCYTES ABSOLUTE MAN 0.19 K/mm3 (0.16-1.47); MONOCYTES PERCENT MAN 7 % (4-13); NEUTROPHILS ABSOLUTE MAN 2.36 K/mm3 (1.96-9.15); SEG NEUTROPHILS PERCENT MAN 77 % (41-73); TOTAL CELLS COUNTED 100
[2018-10-04 09:41] LABS: BLASTS PERCENT MAN 1 % (0-0)
--- NOTE | 2018-10-04 18:41 | NUR ---
SHIFT SUMMARY PT RESTING IN BED THROUGHOUT THE DAY. VSS. ALERT AND ORIENTED X3. C/O PAIN WITH DEEP BREATHS. LUNG SOUNDS CLEAR, REGULAR HEART TONES. TRACE EDEMA TO BLE. PT AMBULATED TO BATHROOM WITH STANDBY ASSIST. DENIES DIZZINESS TODAY. VOIDING PER URINAL. PT DID NOT EAT BREAKFAST, BUT DID HAVE MORE OF AN APPETITE THIS AFTERNOON AND EVENING. WILL CONTINUE TO MONITOR.
--- NOTE | 2018-10-05 06:09 | NUR ---
SHIFT SUMMARY PT REMAINED ALERT AND ORIENTED X 3 THROUGHOUT SHIFT. PT SLEPT WELL DURING THE NIGHT. HE DENIED ANY UNMET NEEDS. NO ACUTE CHANGES WERE OBSERVED TO VITALS OR LOC. PT WAS ABLE TO MAKE NEEDS KNOWN. HE DEMONSTRATED APPROPRIATE USE OF HIS CALL LIGHT. PT WILL CONTINUE TO BE MONITORED UNTIL HANDOFF TO DAYSHIFT RN.
[2018-10-05 08:29] LABS: Hematocrit 27.3 % (37.0-53.0); Hemoglobin 8.8 g/dL (13.5-17.5); Mean Corpuscular HGB 29.5 pg (26.0-34.0); Mean Corpuscular HGB Conc 32.2 g/dL (31.5-36.5); Mean Corpuscular Volume 92 fL (80-100); Mean Platelet Volume 11.8 fL (9.1-12.4); RDW Coefficient Variation 16.7 % (11.7-14.2); RDW Standard Deviation 56.2 fL (35.1-46.3); Red Blood Cell Count 2.98 M/mm3 (4.30-5.90); White Blood Cell Count 1.59 K/mm3 (4.00-11.30)
[2018-10-05 08:37] LABS: Platelet Count 14 K/mm3 (150-400)
[2018-10-05 08:50] LABS: Alanine Aminotransfer (ALT/SGP 17 U/L (12-78); Albumin/Globulin Ratio 0.9 (0.8-1.8); Alk Phos 164 U/L (50-136); Anion Gap 4 mmol/L (6-16); Aspartate Aminotrans (AST/SGOT 5 U/L (12-37); Bilirubin, Total 2.2 mg/dL (0.1-1.0); Blood Urea Nitrogen 24 mg/dL (8-24); Bun/Creatinine Ratio 27.2 (12.0-20.0); CO2, Blood 22 mmol/L (21-32); Calcium, Blood 7.7 mg/dL (8.5-10.1); Chloride, Blood 116 mmol/L (98-108); Creatinine, Blood 0.88 mg/dL (0.60-1.20); Globulin, Blood 2.2 g/dL (2.2-4.0); Glomerular Filtration Rate >60 (60-); Glucose, Blood 101 mg/dL (70-99); Potassium, Blood 3.5 mmol/L (3.5-5.5); Sodium, Blood 142 mmol/L (136-145); Total Protein, Blood 4.2 g/dL (6.4-8.2)
[2018-10-05 09:01] LABS: BAND PERCENT MAN 3 % (0-8); BASOPHILS PERCENT MAN 0 % (0-2); EOSINOPHILS ABSOLUTE MAN 0.04 K/mm3 (0.00-0.68); EOSINOPHILS PERCENT MAN 3 % (0-6); LYMPHOCYTES % ATYPICAL MANUAL 1 % (0-0); LYMPHOCYTES ABSOLUTE MAN 0.04 K/mm3 (0.84-5.20); LYMPHOCYTES PERCENT MAN 2 % (21-46); MONOCYTES PERCENT MAN 0 % (4-13); NEUTROPHILS ABSOLUTE MAN 1.49 K/mm3 (1.96-9.15); SEG NEUTROPHILS PERCENT MAN 91 % (41-73); TOTAL CELLS COUNTED 100
[2018-10-05] MEDS ORDERED: LEVOFLOXACIN750 MG PO (11:25)
[2018-10-05] MEDS ORDERED: CLOT10 PO (11:26)
[2018-10-05] MEDS ORDERED: MIRT30ST PO (11:27)
[2018-10-05] MEDS ORDERED: SUCR1 PO (11:28)
[2018-10-05] MEDS ORDERED: PANT40 PO (11:29)
--- NOTE | 2018-10-05 12:05 | NUR ---
DISCHARGE NOTE PT STABLE FOR DISCHARGE. POWERGLIDE REMOVED, TIP INTACT. DISCHARGE INSTRUCTIONS, DISCHARGE MEDICATIONS AND NEUTROPENIA EDUCATION DISCUSSED WITH PT AND FAMILYT. PT AND FAMILY VERBALIZE UNDERSTANDING AND DENY QUESTIONS. PT DISCHARGED HOME WITH BELONGINGS VIA WHEELCHAIR.
== END 2018-10-05 12:17 | disposition home or self-care (01) | DRG 871 ==
LOC: ER 16:33 → PCU 21:18
PROVIDERS: Emergency Medicine; Internal Medicine; Internal Medicine Hematology & Oncology; ADMIT Hospitalist
PROC: 30233N1 Transfusion of Nonautologous Red Blood Cells into Peripheral Vein, Percutaneous Approach (ICD-10-PCS; principal; 2018-09-27)
PROC: 30233R1 Transfusion of Nonautologous Platelets into Peripheral Vein, Percutaneous Approach (ICD-10-PCS; 2018-09-27)
DX: A41.9 Sepsis, unspecified organism (principal); J18.9 Pneumonia, unspecified organism; D61.810 Antineoplastic chemotherapy induced pancytopenia; C83.08 Small cell B-cell lymphoma, lymph nodes of multiple sites; E46 Unspecified protein-calorie malnutrition; F32.9 Major depressive disorder, single episode, unspecified; Z68.21 Body mass index [BMI] 21.0-21.9, adult; K21.9 Gastro-esophageal reflux disease without esophagitis; E87.6 Hypokalemia; I95.9 Hypotension, unspecified; G47.00 Insomnia, unspecified; D64.81 Anemia due to antineoplastic chemotherapy; D63.0 Anemia in neoplastic disease; Z87.891 Personal history of nicotine dependence; E86.0 Dehydration
CPT/HCPCS: 36415; 36430; 71046; 80053; 80202; 81001; 82728; 83540; 83550; 83605; 83735; 84145; 85014; 85018; 85025; 85045; 85049; 86850; 86900; 86901; 86923; 87040; 87086; 93005; 93010; 96361; 96365; 96367; 97161; 97530; 99285-25; C1751; C9113; J0692; J0696; J1100; J1447; J2405; J2543; J3370; J3480; J7030; J7050; J7120; J9070; P9016; P9035; P9053

== ENCOUNTER 2018-10-08 15:05 | Day surgery (SDC) | payer MEDICARE ==
[~2018-10-08 15:05] MED LIST changes: +CLOT10 PO; +LEVOFLOXACIN750 MG PO; +MIRT30ST PO; +PANT40 PO; +SUCR1 PO
--- NOTE | 2018-10-08 15:59 | NUR ---
TINY BP TAKEN. SEE TRANSFUSION VS. PT DENIES BEING DIZZY/LIGHTHEADED. REPORTS "HISTORY OF LOW BP OVER 35'S".
== END 2018-10-08 17:11 | disposition home or self-care (01) ==
LOC: ATC 15:05
DX: C91.10 Chronic lymphocytic leukemia of B-cell type not having achieved remission (principal); C77.2 Secondary and unspecified malignant neoplasm of intra-abdominal lymph nodes; D63.0 Anemia in neoplastic disease; D69.6 Thrombocytopenia, unspecified; Z87.891 Personal history of nicotine dependence; Z91.013 Allergy to seafood; Z79.899 Other long term (current) drug therapy
CPT/HCPCS: 36415; 36430; 86900; 86901; J7050; P9035

== ENCOUNTER 2018-10-15 10:37 | Inpatient (IN) | payer MEDICARE ==
[~2018-10-15] VITALS: Ht 182.9 cm; Wt 73.2 kg
[~2018-10-15 10:37] MED LIST changes: -CYAN500; +CYAN500 PO
[2018-10-15 10:57] LABS: PCO2 Arterial 24.7 mmHg (35-45); PO2 Arterial 131 mmHg (80-100); pH Blood Arterial 7.52 (7.35-7.45)
[2018-10-15 11:34] LABS: Alanine Aminotransfer (ALT/SGP 16 U/L (12-78); Albumin, Blood 2.2 g/dL (3.4-5.0); Albumin/Globulin Ratio 1.1 (0.8-1.8); Alk Phos 87 U/L (50-136); Anion Gap 10 mmol/L (6-16); Aspartate Aminotrans (AST/SGOT 6 U/L (12-37); Bilirubin, Total 2.7 mg/dL (0.1-1.0); Blood Urea Nitrogen 34 mg/dL (8-24); Bun/Creatinine Ratio 32.1 (12.0-20.0); CO2, Blood 22 mmol/L (21-32); Calcium, Blood 7.8 mg/dL (8.5-10.1); Chloride, Blood 113 mmol/L (98-108); Creatinine, Blood 1.06 mg/dL (0.60-1.20); Glomerular Filtration Rate >60 (60-); Glucose, Blood 107 mg/dL (70-99); International Normalized Ratio 2.18; Potassium, Blood 3.7 mmol/L (3.5-5.5); Prothrombin Time Results 21.5 Sec (9.7-11.5); Sodium, Blood 145 mmol/L (136-145); Total Protein, Blood 4.2 g/dL (6.4-8.2)
[2018-10-15 12:11] LABS: Mean Corpuscular HGB 29.7 pg (26.0-34.0); Mean Corpuscular HGB Conc 33.1 g/dL (31.5-36.5); RDW Coefficient Variation 14.9 % (11.7-14.2); RDW Standard Deviation 48.7 fL (35.1-46.3); Red Blood Cell Count 1.65 M/mm3 (4.30-5.90)
[2018-10-15 12:13] LABS: Mean Corpuscular Volume 90 fL (80-100)
[2018-10-15 12:14] LABS: BASOPHILS PERCENT AUTO 0 % (0-2); EOSINOPHILS PERCENT AUTO 0 % (0-6); IMMATURE GRAN PERCENT AUTO 0 % (0-1); LYMPHOCYTES ABSOLUTE AUTO 0.01 K/mm3 (0.84-5.20); LYMPHOCYTES PERCENT AUTO 13 % (21-46); MONOCYTES ABSOLUTE AUTO 0.04 K/mm3 (0.16-1.47); MONOCYTES PERCENT AUTO 50 % (4-13); NEUTROPHILS ABSOLUTE AUTO 0.03 K/mm3 (1.96-9.15); NEUTROPHILS PERCENT AUTO 38 % (41-73)
[2018-10-15 12:16] LABS: Hematocrit 14.8 % (37.0-53.0); Hemoglobin 4.9 g/dL (13.5-17.5); White Blood Cell Count 0.08 K/mm3 (4.00-11.30)
[2018-10-15 12:17] LABS: Platelet Count 3 K/mm3 (150-400)
[2018-10-15 12:35] LABS: Source, Urine Clean Catch
[2018-10-15 12:41] LABS: Bilirubin, Urine Neg (Neg); Blood, Urine 1+ (Neg); Glucose Qualitative, Urine Neg (Neg); Ketones, Urine Neg (Neg); Leukocyte Esterase, Urine Neg (Neg); Nitrite, Urine Neg (Neg); Protein, Urine 1+ (Neg); Specific Gravity, Urine 1.015 (1.003-1.022); Urobilinogen, Urine 1+ (Normal)
[2018-10-15 12:57] LABS: Appearance, Urine Clear (Clear); Color, Urine Yellow (P-Yellow)
[2018-10-15 12:58] LABS: Bacteria Few /hpf; Squamous Epithelial Cells Not Seen /hpf (Few); White Blood Cells, Urine 0-2 /hpf (0-5)
[2018-10-15 14:46] LABS: Hemoglobin 4.8 g/dL (13.5-17.5)
[2018-10-15 14:47] LABS: Hematocrit 14.5 % (37.0-53.0)
[2018-10-15 15:58] LABS: Bilirubin, Direct 1.1 mg/dL (0.0-0.3); Bilirubin, Indirect 1.5 mg/dL (0.1-0.7); Bilirubin, Total 2.6 mg/dL (0.1-1.0)
== END 2018-10-15 20:30 | disposition hospice, home (50) | DRG 808 ==
LOC: ER 10:37 → ICUE 12:32 → ICUW 12:32 → ICUE 13:15
PROVIDERS: Internal Medicine; ADMIT Internal Medicine
PROC: 30233R1 Transfusion of Nonautologous Platelets into Peripheral Vein, Percutaneous Approach (ICD-10-PCS; principal; 2018-10-15)
PROC: 30233N1 Transfusion of Nonautologous Red Blood Cells into Peripheral Vein, Percutaneous Approach (ICD-10-PCS; 2018-10-15)
DX: D61.818 Other pancytopenia (principal); R57.1 Hypovolemic shock; C85.10 Unspecified B-cell lymphoma, unspecified site; E87.2 Acidosis; C83.08 Small cell B-cell lymphoma, lymph nodes of multiple sites; Z87.891 Personal history of nicotine dependence; D69.6 Thrombocytopenia, unspecified; Z66 Do not resuscitate
CPT/HCPCS: 36415; 36430; 36569; 36600; 71045; 80053; 81001; 82247; 82248; 82803; 82947; 83605; 83615; 84145; 85014; 85018; 85025; 85610; 86850; 86900; 86901; 86923; 93005; 93010; 96374; 96375; 99285-25; C1751; C9113; J1956; J7030; J7120; P9016; P9035